=== PATIENT | female | born 1955 | race Caucasian/White ===

== ENCOUNTER → 2016-11-17 | Outpatient (CLI) | payer BC ==
[~2016-11-17] VITALS: Ht 167.6 cm; Wt 106.5 kg
[~2016-11-17] MED LIST: ASPIRIN EC81 MG PO; BACTRIM DS1 TAB PO; CLARITIN10 MG PO; COMBIGAN EYE DRO5 ML OPHTH; COREG25 MG PO; DAKINS 0.25% (473 ML TOP; ENTRESTO 24 MG1 EACH PO; FLONASE 50 MCG/16 GM NOSE; LEVEMIR100 UNIT/1 SUB-Q; LUMIGAN 0.01%2.5 ML OPHTH; NORCO 5-325 TA1 EACH PO; NOVOLOG100 UNIT/M SUB-Q
--- NOTE | ~2016-11-17 | OR ---
PATIENT'S NAME: MARIO CHING [facility] AGE: 61 Y [address] ROOM: [place] [address] LOCATION: [facility] ADMIT DATE: 11/17/2016 OR/Procedure Report DISCHARGE DATE: FAMILY PHYSICIAN: Iban Carballo ATTENDING PHYSICIAN: GUERRERO LAZAR SURGEON: Guerrero Lazar MD HELPER ELECTRICAL: DATE OF PROCEDURE: 11/17/2016 PREOPERATIVE DIAGNOSIS: Poorly functioning fistula. POSTOPERATIVE DIAGNOSIS: Poorly functioning fistula. PROCEDURE PERFORMED: Right arm fistulogram. CLINICAL PROJECT LEADER: Kerwin Briones M.D. ANESTHESIA: MAC local. ESTIMATED BLOOD LOSS: 5 mL. OPERATIVE FINDINGS: No outflow vein tract stenosis but the small radial artery, likely not providing an adequate flow. DESCRIPTION OF PROCEDURE: The patient was brought to the cath lab tech, placed supine on the cath lab tech table, prepped and draped in a sterile manner. Preoperative time-out was performed. We gained access using ultrasound guidance to the right arm radiocephalic fistula. We then exchanged using Seldinger technique for a 4-Kyrgyz micropuncture sheath and performed a series of fistulogram what we found is that there was no outflow tract stenosis. The fistula drain to the basilic inadequate manner and drain into the central chest without any blockages. We did reflux view, which showed that the arterial anastomosis was patent. The issue with clotting is likely secondary that her radial artery at this level was quite small and likely not providing enough adequate flow to prevent the machine from clotting. She can either continue use a significant amount of heparin during dialysis or she can have a fistula made another arm, which we think what she will opt for. The sheath was removed. Pressure was held. The patient tolerated the procedure well and transferred to the recovery room, and then home later that day. GUERRERO LAZAR MD PATIENT'S NAME: MARIO CHING [facility] AGE: 61 Y [address] ROOM: [place] [address] LOCATION: [facility] ADMIT DATE: 11/17/2016 OR/Procedure Report DISCHARGE DATE: FAMILY PHYSICIAN: Hentzen, Iban ATTENDING PHYSICIAN: GUERRERO LAZAR FKM/modl /[id number] d: 11/17/16 1003 t: 11/21/16 0945, OPERATIVE SUMMARY
[2016-11-17 06:36] LABS: BASOPHIL # 0.1 K/uL (0.0-0.2); BASOPHIL % 0.9 %; EOSINOPHIL # 0.5 K/uL (0.0-0.5); EOSINOPHIL % 5.4 %; HEMATOCRIT 33.4 % (33.0-46.0); HEMOGLOBIN 10.8 g/dL (10.0-15.0); IMMATURE GRANULOCYTE # 0.5 K/uL (0.0-0.3); LYMPHOCYTE # 2.4 K/uL (0.8-4.0); LYMPHOCYTE % 24.6 %; MCH 27.5 pg (27.0-34.0); MCHC 32.3 gm/dL (32.0-36.5); MONOCYTE # 0.8 K/uL (0.0-1.0); MONOCYTE % 8.3 %; MPV 9.5 fl (9.4-12.4); NEUTROPHIL # (ANC) 5.3 K/uL (1.8-7.8); NEUTROPHIL % 55.8 %; NRBC % 0 /100WBC (0-0.00); PLATELET COUNT 310 K/uL (150-450); RBC 3.93 M/uL (3.50-5.50); RDW-CV 13.5 % (11.9-14.6); WBC 9.6 K/uL (4.0-11.0)
[2016-11-17 07:00] LABS: ALBUMIN 3.3 gm/dL (3.5-5.0); ANION GAP 14.7 (10.0-19.0); CREATININE 3.5 mg/dL (0.5-1.1); POTASSIUM 3.7 mMol/L (3.7-5.1); TOTAL BILIRUBIN 0.5 mg/dL (0.0-1.5); TOTAL PROTEIN 7.5 g/dL (6.0-8.4)
== END | disposition disaster alternative care site (69) ==
LOC: GPOC 11-11 09:00 → GCAT 05:58 → GPOC 06:00
PROVIDERS: Surgery Vascular Surgery
PROC: B31HYZZ Fluoroscopy of Right Upper Extremity Arteries using Other Contrast (ICD-10-PCS; principal; 2016-11-17)
DX: T82.898A Other specified complication of vascular prosthetic devices, implants and grafts, initial encounter (principal)
CPT/HCPCS: J0690; J1644; J2001; J2250; J3010; J7030

== ENCOUNTER → 2016-12-10 | Day surgery (SDC) | payer BC ==
[~2016-12-10] VITALS: Ht 167.6 cm; Wt 108.9 kg
--- NOTE | ~2016-12-10 | OR ---
PATIENT'S NAME: MARIO CHING [facility] AGE: 61 Y [address] ROOM: [place], [place] [address] [place] [facility] [place]: 12/10/2016 OR/Procedure Report DISCHARGE DATE: FAMILY PHYSICIAN: Iban Carballo ATTENDING PHYSICIAN: KEVON LAZAR SURGEON: Kevon Lazar MD GRAVEL MACHINE OPERATOR: DATE OF PROCEDURE: 12/10/2016 PREOPERATIVE DIAGNOSIS: End-stage renal. POSTOPERATIVE DIAGNOSIS: End-stage renal. PROCEDURE: Left arm brachiocephalic AV fistula. GASKET MAKER: OR staff. ANESTHESIA: General. ESTIMATED BLOOD LOSS: 10 mL. OPERATIVE FINDINGS: Good thrill and bruit. Strong radial and ulnar signals at the end of the case. DESCRIPTION OF PROCEDURE: The patient was brought to the operating room, placed supine on the operative table, prepped and draped in a sterile manner. Preoperative time-out was performed. The patient received preoperative antibiotics. We made a standard incision 2 cm proximal to the antecubital fossa. Dissected down to the fascia. Incised the fascia in a longitudinal manner. Dissected out the brachial artery in a 360-degree fashion. We then performed the same maneuver on the cephalic vein, clipping it distally and then transecting it. We gave 5000 units of heparin. We clamped proximally and distally on the artery and made an arteriotomy size of 4 mm and then did a standard 6-0 Prolene anastomosis from the vein to the artery. We removed the clamps. There was excellent flow into the vein. There was a strong radial and ulnar signal. Flow was confirmed using Doppler. Heparin was reversed with protamine. Deep layers were closed with 2-0 and 3-0 Vicryl. Skin was closed with running 4-0 Monocryl. The patient tolerated the procedure well and was transferred to the recovery room and then home later that day. KEVON LAZAR MD PATIENT'S NAME: MARIO CHING [facility] AGE: 61 Y [address] ROOM: [place], [place] [address] [place] [facility] [place]: 12/10/2016 OR/Procedure Report DISCHARGE DATE: FAMILY PHYSICIAN: Iban Carballo ATTENDING PHYSICIAN: KEVON LAZAR FKM/modl /[id number] d: 12/10/16 2339 t: 12/12/16 0929, OPERATIVE SUMMARY
[2016-12-10 06:47] LABS: HEMATOCRIT 33.2 % (33.0-46.0); MCH 27.6 pg (27.0-34.0); MCHC 33.1 gm/dL (32.0-36.5); MCV 83.4 fl (83.0-98.0); MPV 9.6 fl (9.4-12.4); PLATELET COUNT 255 K/uL (150-450); RBC 3.98 M/uL (3.50-5.50)
[2016-12-10 07:05] LABS: ALBUMIN 3.1 gm/dL (3.5-5.0); CALCIUM 8.5 mg/dL (8.5-10.5); CREATININE 3.4 mg/dL (0.5-1.1); TOTAL PROTEIN 6.9 g/dL (6.0-8.4)
[2016-12-10 07:06] LABS: TOTAL BILIRUBIN 0.3 mg/dL (0.0-1.5)
[2016-12-10 07:31] LABS: ABSOLUTE NEUTROPHIL CT (ANC) 4.9 K/uL (1.8-7.8); BANDED NEUTROPHIL # 0.5 K/uL (0.0-0.1); BANDED NEUTROPHILS % 6 %; LYMPHOCYTE # 2.2 K/uL (0.8-4.0); LYMPHOCYTE % 27 %; MONOCYTE # 0.4 K/uL (0.0-1.0); SEGMENTED NEUTROPHIL # 4.4 K/uL (1.8-7.8); SEGMENTED NEUTROPHIL % 55 %
== END ==
LOC: GPOC 12-03 13:00 → GSDC 05:30
PROVIDERS: Surgery Vascular Surgery
PROC: 03180AD Bypass Left Brachial Artery to Upper Arm Vein with Autologous Arterial Tissue, Open Approach (ICD-10-PCS; principal; 2016-12-10)
DX: N18.6 End stage renal disease (principal); D64.9 Anemia, unspecified; Z90.710 Acquired absence of both cervix and uterus; Z79.899 Other long term (current) drug therapy; Z88.8 Allergy status to other drugs, medicaments and biological substances; Z98.51 Tubal ligation status; Z98.49 Cataract extraction status, unspecified eye
CPT/HCPCS: J0690; J1644; J2720; J7030

== ENCOUNTER 2017-02-23 08:07 | Outpatient (CLI) | payer BC ==
[~2017-02-23] VITALS: Ht 167.6 cm; Wt 108.8 kg
--- NOTE | ~2017-02-23 | OR ---
PATIENT'S NAME: MARIO CHING [facility] AGE: 61 Y [address] ROOM: [place] [address] LOCATION: [facility] ADMIT DATE: 02/23/2017 OR/Procedure Report DISCHARGE DATE: 02/23/2017 FAMILY PHYSICIAN: Iban Carballo ATTENDING PHYSICIAN: Guerrero Lazar SURGEON: Guerrero Lazar MD POLY AREA SUPERVISOR: DATE OF PROCEDURE: 02/23/2017 PREOPERATIVE DIAGNOSIS: Poorly functioning left arm brachiocephalic fistula. POSTOPERATIVE DIAGNOSIS: Poorly functioning left arm brachiocephalic fistula. PROCEDURE: Fistulogram. CASE COORDINATOR: Michael. ANESTHESIA: MAC local. ESTIMATED BLOOD LOSS: 5 mL. FINDINGS: Cephalic vein too torturous for fistula creation. We will need revision with AV graft. DESCRIPTION OF PROCEDURE: The patient was brought to experimental machining lab manager, placed supine on the experimental machining lab manager table, prepped and draped in a sterile manner. Preoperative time-out was performed. The patient received preoperative antibiotics. We gained access to the fistula using ultrasound guidance. We infiltrated the skin with 1% lidocaine. Then, a micropuncture needle, followed by micropuncture wire, followed by micropuncture sheath. We then performed a series of fistulogram which showed that the cephalic vein was not a large caliber vein, despite being fistulized, this axillary vein was patent. The patient will need a revision of the fistula with AV graft and ligation of that previous fistula. Sheath was removed. Pressure was held for 10 minutes. The patient tolerated the procedure well and transferred to the recovery room and home later that day. GUERRERO LAZAR MD FKM/modl PATIENT'S NAME: MARIO CHING [facility] AGE: 61 Y [address] ROOM: [place] [address] LOCATION: [facility] ADMIT DATE: 02/23/2017 OR/Procedure Report DISCHARGE DATE: 02/23/2017 FAMILY PHYSICIAN: Iban Carballo ATTENDING PHYSICIAN: Guerrero Lazar /[id number] d: 02/23/171840 t: 02/24/17 1630, OPERATIVE SUMMARY
[~2017-02-23 08:07] MED LIST changes: -BACTRIM DS1 TAB PO; -DAKINS 0.25% (473 ML TOP; -ENTRESTO 24 MG1 EACH PO; -FLONASE 50 MCG/16 GM NOSE
[2017-02-23 09:42] LABS: BASOPHIL % 0.6 %; EOSINOPHIL # 0.2 K/uL (0.0-0.5); EOSINOPHIL % 3.4 %; HEMATOCRIT 31.5 % (33.0-46.0); HEMOGLOBIN 9.9 g/dL (10.0-15.0); IMMATURE GRANULOCYTE # 0.1 K/uL (0.0-0.3); IMMATURE GRANULOCYTE % 1.7 %; LYMPHOCYTE # 1.8 K/uL (0.8-4.0); LYMPHOCYTE % 26.7 %; MCH 27.5 pg (27.0-34.0); MCHC 31.4 gm/dL (32.0-36.5); MCV 87.5 fl (83.0-98.0); MONOCYTE # 0.6 K/uL (0.0-1.0); MONOCYTE % 8.7 %; MPV 9.6 fl (9.4-12.4); NEUTROPHIL # (ANC) 3.9 K/uL (1.8-7.8); NEUTROPHIL % 58.9 %; NRBC % 0 /100WBC (0-0.00); PLATELET COUNT 262 K/uL (150-450); RDW-CV 15.2 % (11.9-14.6); WBC 6.6 K/uL (4.0-11.0)
[2017-02-23 10:00] LABS: ALBUMIN 3.4 gm/dL (3.5-5.0); CALCIUM 9.1 mg/dL (8.5-10.5); CREATININE 3.4 mg/dL (0.5-1.1); TOTAL PROTEIN 7.2 g/dL (6.0-8.4)
[2017-02-23 10:01] LABS: TOTAL BILIRUBIN 0.4 mg/dL (0.0-1.5)
[2017-02-25] MEDS ORDERED: NORCO 5-325 TA1 EACH PO (14:07)
[2017-04-13] MEDS ORDERED: ENTRESTO 24 MG1 EACH PO (14:39)
[2017-04-13] MEDS ORDERED: FLONASE 50 MCG/16 GM NOSE (14:41)
[2017-04-15] MEDS ORDERED: BACTRIM DS1 TAB PO (13:16)
[2017-04-15] MEDS ORDERED: DAKINS 0.25% (473 ML TOP (13:17)
[2017-04-15] MEDS ORDERED: NORCO 5-325 TA1 EACH PO (13:17)
== END 2017-02-23 12:50 | disposition disaster alternative care site (69) ==
LOC: GCAT 08:07 → GPCU 08:07 → GCAT 12:50
PROVIDERS: Surgery Vascular Surgery
PROC: B51NYZZ Fluoroscopy of Left Upper Extremity Veins using Other Contrast (ICD-10-PCS; principal; 2017-02-23)
DX: T82.598A Other mechanical complication of other cardiac and vascular devices and implants, initial encounter (principal)
CPT/HCPCS: J0690; J1644; J2001; J2250; J3010; J7030

== ENCOUNTER → 2017-02-25 | Day surgery (SDC) | payer BC ==
[~2017-02-25] VITALS: Ht 167.6 cm; Wt 108.1 kg
[~2017-02-25] MED LIST changes: +BACTRIM DS1 TAB PO; +DAKINS 0.25% (473 ML TOP; +ENTRESTO 24 MG1 EACH PO; +FLONASE 50 MCG/16 GM NOSE
--- NOTE | ~2017-02-25 | OR ---
PATIENT'S NAME: MARIO CHING [facility] AGE: 61 Y [address] ROOM: [place] [address] [place] [facility] [place]: 02/25/2017 OR/Procedure Report DISCHARGE DATE: FAMILY PHYSICIAN: Iban Carballo ATTENDING PHYSICIAN: GUERRERO GRAHAM SURGEON: Guerrero Graham MD BULLET LUBRICANT MIXER: DATE OF PROCEDURE: 02/25/2017 PREOPERATIVE DIAGNOSIS: End-stage renal disease. POSTOPERATIVE DIAGNOSIS: End-stage renal disease. PROCEDURES PERFORMED: Ligation of brachiocephalic fistula and creation of a new brachiobasilic fistula. PATIENT FINANCIAL REPRESENTATIVE: BRANT Gutierrez. ANESTHESIA: General. ESTIMATED BLOOD LOSS: 10 mL. OPERATIVE FINDINGS: Good thrill and bruit in the basilic fistula. No further flow in the cephalic fistula. DESCRIPTION OF PROCEDURE: The patient was brought to the Operating Room, placed under general anesthesia, and prepped and draped in a sterile manner. A preoperative time-out was performed. The patient received preoperative antibiotics. We made a transverse incision 2 cm proximal to the antecubital fossa, dissected down the fascia, and incised the fascia in a longitudinal manner. We dissected out the brachial artery, and we then dissected out the basilic vein in a similar fashion. We ligated and transected it distally. We then gave 5000 units of heparin. We clamped proximally and distally the artery. We then made an arteriotomy size of 4 mm using an 11-blade as well as Tapia scissors. We then did a standard 6-0 Prolene anastomosis from the vein to the artery. We removed the clamps and there was excellent flow in the fistula, which was confirmed with the use of Doppler. We then extended our incision more laterally. We then ligated the cephalic fistula. It was too tortuous to be used for dialysis with a single silk tie. Heparin was reversed with protamine. Thrombin was used locally. WOUND CLOSURE: All deep layers were closed with 2-0 and 3-0 Vicryl. Skin was closed with a running 4-0 Monocryl. POSTOPERATIVE DISPOSITION: The patient tolerated the procedure well, and was PATIENT'S NAME: MARIO CHING [facility] AGE: 61 Y [address] ROOM: [place] [address] [place] [facility] [place]: 02/25/2017 OR/Procedure Report DISCHARGE DATE: FAMILY PHYSICIAN: Iban Carballo ATTENDING PHYSICIAN: GUERRERO GRAHAM transferred to the Recovery Room and home later that day. MD EL PEREZ/cjl /[id number] d: 02/25/172011 t: 03/03/17 1543, OPERATIVE SUMMARY
== END | disposition disaster alternative care site (69) ==
LOC: GSDC 07:30
PROC: 05LF0ZZ Occlusion of Left Cephalic Vein, Open Approach (ICD-10-PCS; principal; 2017-02-25)
PROC: 031809D Bypass Left Brachial Artery to Upper Arm Vein with Autologous Venous Tissue, Open Approach (ICD-10-PCS; 2017-02-25)
DX: E11.22 Type 2 diabetes mellitus with diabetic chronic kidney disease (principal); I13.2 Hypertensive heart and chronic kidney disease with heart failure and with stage 5 chronic kidney disease, or end stage renal disease; I50.9 Heart failure, unspecified; N18.6 End stage renal disease; M19.90 Unspecified osteoarthritis, unspecified site; E11.40 Type 2 diabetes mellitus with diabetic neuropathy, unspecified; E66.9 Obesity, unspecified; Z99.2 Dependence on renal dialysis; Z98.51 Tubal ligation status; Z90.710 Acquired absence of both cervix and uterus; Z90.49 Acquired absence of other specified parts of digestive tract; Z89.511 Acquired absence of right leg below knee; Z98.41 Cataract extraction status, right eye; Z98.42 Cataract extraction status, left eye; Z98.890 Other specified postprocedural states; Z79.899 Other long term (current) drug therapy; Z79.82 Long term (current) use of aspirin; Z79.4 Long term (current) use of insulin; Z88.8 Allergy status to other drugs, medicaments and biological substances
CPT/HCPCS: J0690; J1644; J2001; J2720; J7030; J7120

== ENCOUNTER → 2017-04-15 | Day surgery (SDC) | payer BC ==
[~2017-04-15] VITALS: Ht 167.6 cm; Wt 110.5 kg
--- NOTE | ~2017-04-15 | OR ---
PATIENT'S NAME: MARIO CHING [facility] AGE: 61 Y [address] ROOM: [place] [address] [place] [facility] [place] DATE: 04/15/2017 OR/Procedure Report DISCHARGE DATE: FAMILY PHYSICIAN: Iban Carballo ATTENDING PHYSICIAN: GUERRERO LAZAR SURGEON: Guerrero Lazar MD RUBBER COMPOUNDER SUPERVISOR: DATE OF PROCEDURE: 04/15/2017 PREOPERATIVE DIAGNOSIS: Infected seroma of the left arm. POSTOPERATIVE DIAGNOSIS: Infected seroma of the left arm. PROCEDURE: Incision and drainage of left arm. FIELD PROPERTY LOSS SPECIALIST: BRANT Freedman. ANESTHESIA: General. ESTIMATED BLOOD LOSS: 100 mL. FINDINGS: Clear seroma. No celeste pus. Completely drained and packed with Dakin-soaked solution. DESCRIPTION OF PROCEDURE: The patient was brought to the operating room, placed supine on operating room table, prepped and draped in a sterile manner. Preoperative time-out was performed. The patient received preoperative antibiotics. We used a 15 blade to incise and drain the previously closed incision of the left arm brachiobasilic fistula. There was immediate evacuation of clear fluid along with fat necrosis fluid. We copiously irrigated the wound with antibiotic-soaked solution. We then packed the wound with Dakin-soaked gauze. The patient tolerated the procedure well and transferred to recovery room and home later that day. GUERRERO LAZAR MD FKM/modl /[id number] d: 04/15/172012 t: 04/22/17 1720, OPERATIVE SUMMARY
[2017-04-15 10:35] LABS: ALBUMIN 3.1 gm/dL (3.5-5.0); ANION GAP 13.7 (10.0-19.0); CALCIUM 8.6 mg/dL (8.5-10.5); POTASSIUM 4.7 mMol/L (3.7-5.1); TOTAL BILIRUBIN 0.4 mg/dL (0.0-1.5)
== END ==
LOC: GPOC 04-13 16:00 → GSDC 08:45
PROVIDERS: Surgery Vascular Surgery
PROC: 0H9CXZZ Drainage of Left Upper Arm Skin, External Approach (ICD-10-PCS; principal; 2017-04-15)
DX: T81.4XXA Infection following a procedure, initial encounter (principal); N18.6 End stage renal disease; Z79.82 Long term (current) use of aspirin; Z79.4 Long term (current) use of insulin; Z79.899 Other long term (current) drug therapy; Z88.8 Allergy status to other drugs, medicaments and biological substances; Z90.49 Acquired absence of other specified parts of digestive tract; Z90.710 Acquired absence of both cervix and uterus
CPT/HCPCS: J0690; J2001; J2405; J3370; J7030